=== PATIENT | female | born 1995 | race Caucasian/White ===

== ENCOUNTER 2017-07-29 19:25 | Observation (INO) | payer MEDICAID ==
[2017-07-29 20:00] VITALS: BP 131/72; PULSE 80
[2017-07-29 20:26] LABS: Amphetamine,Urine NEG. (NEGATIVE); Barbiturate,Urine NEG. (NEGATIVE); Benzodiazepine,Urine NEG. (NEGATIVE); Cocaine,Urine NEG. (NEGATIVE); Methadone,Urine NEG. (NEGATIVE); Opiate,Urine NEG. (NEGATIVE); PCP,Urine NEG. (NEGATIVE); THC,Urine NEG. (NEGATIVE)
[2017-07-29 21:15] LABS: Appearance CLEAR (CLEAR); Bilirubin NEGATIVE (NEGATIVE); Blood TRACE NON-HEM Ery/ul (0-5); Glucose NEGATIVE (NEGATIVE); Ketones NEGATIVE (NEGATIVE); Leukocyte Esterase 1+ (NEGATIVE); Nitrite NEGATIVE (NEGATIVE); Protein,Urine Dip NEGATIVE (Negative); Specific Gravity 1.015 (1.005-1.025); Urobilinogen NORMAL mg/dL (0-1)
[2017-07-29 21:16] LABS: Bacteria MODERATE /HPF (NEGATIVE); Epithelial Cells FEW /HPF (FEW)
== END 2017-07-29 21:37 | disposition home or self-care (01) ==
LOC: OB 19:25
PROVIDERS: ADMIT Family Medicine; ATTEND Family Medicine
DX: Z34.02 Encounter for supervision of normal first pregnancy, second trimester (principal)
CPT/HCPCS: 80307; 81000; G0378

== ENCOUNTER 2018-08-05 20:37 | Emergency (ER) | payer OTHER ==
[2018-08-05 20:56] VITALS: O2SAT 96
[2018-08-05] MEDS ORDERED: Rocephin 1000 MG INJ IM ONE (21:27)
[2018-08-05] MEDS ORDERED: BACTRIM DS TABLET PO STA (21:28)
[2018-08-05] MEDS ORDERED: NORCO 5/325 MG PO ONE ×2 (21:28→21:42)
[2018-08-05] MEDS ORDERED: BACTRIM DS TABLET PO ONE (21:32)
[2018-08-05] MEDS ORDERED: Rocephin 1000 MG INJ ONE (21:33)
[2018-08-05] MEDS ORDERED: NORCO 5/325 MG ONE ×2 (21:33→21:49)
[2018-08-05] MEDS ORDERED: XYLOCAINE 1% HCL 20 ML MDV ONE (21:33)
--- NOTE | 2018-08-05 21:37 | ERPHSYRPT ---
- History of Present Illness Time Seen by Provider: 08/05/18 21:05 Source: patient, family Patient Subjective Stated Complaint: Abscess Triage Nursing Assessment: Patient brought back to ED and transferred self to bed. Patient A+O X 3. Patient's skin pink, warm and dry. Patient complains of abscess to lower right side of abdomen that is draining brown foul smelling drainage. Patient complains of pain 9/10. Physician History: 22 y/o white female presents with a one day h/o right suprapubic abscess. spontaneously opened and draining here in ED. pain improved once abscess opened. mild odor present. pt does occasional have spontaneous abscesses on legs. no known exposure to anyone with MRSA. no fevers. Timing/Duration: day(s) (one) Quality: painful Severity: mild Location: other (right pannus/suprapubic) Associated Symptoms: swelling/mass/lumps, No change in skin texture, No difficulty breathing, No fever Allergies/Adverse Reactions: No Known Drug Allergies Allergy (Verified 08/05/18 20:45) Hx Influenza Vaccination/Date Given: No Hx Pneumococcal Vaccination/Date Given: No Immunizations Up to Date: Yes - Review of Systems Constitutional: No Symptoms Eyes: No Symptoms Ears, Nose, & Throat: No Symptoms Respiratory: No Symptoms Cardiac: No Symptoms Abdominal/Gastrointestinal: No Symptoms Genitourinary Symptoms: No Symptoms Musculoskeletal: No Symptoms Skin: Other (abscess right suprapubic area) Neurological: No Symptoms Psychological: No Symptoms Endocrine: No Symptoms Hematologic/Lymphatic: No Symptoms Immunological/Allergic: No Symptoms All Other Systems: Reviewed and Negative - Past Medical History Pertinent Past Medical History: Yes Neurological History: No Pertinent History ENT History: No Pertinent History Cardiac History: No Pertinent History Respiratory History: Asthma Endocrine Medical History: No Pertinent History Musculoskeletal History: No Pertinent History GI Medical History: No Pertinent History History: No Pertinent History Psycho-Social History: No Pertinent History Female Reproductive Disorders: Other Other Medical History: watermelon sized ovarian cyst removed at age 18 - Past Surgical History Past Surgical History: Yes Neuro Surgical History: No Pertinent History Cardiac: No Pertinent History Respiratory: No Pertinent History Gastrointestinal: No Pertinent History Genitourinary: No Pertinent History Musculoskeletal: Amputation, Other Female Surgical History: Other Other Surgical History: multiple sets of tubes placed and replaced in both ears, . 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 watermelon sized ovarian cyst removed at age 18 - Social History Smoking Status: Current every day smoker How long have you smoked: 4 years Exposure to second hand smoke: Yes Drug Use: none Patient Lives Alone: No - Female History Hx Last Menstrual Period: Middle of June Hx Now: No - Nursing Vital Signs Nursing Vital Signs: Initial Vital Signs Temperature 99.8 F 08/05/18 20:46 Pulse Rate 92 H 08/05/18 20:46 Respiratory Rate 18 08/05/18 20:46 Blood Pressure 117/82 08/05/18 20:46 O2 Sat by Pulse Oximetry 96 08/05/18 20:46 Pain Scale Pain Intensity 9 - Physical Exam General Appearance: no apparent distress, alert, anxiety Eye Exam: PERRL/EOMI, eyes nml inspection Ears, Nose, Throat Exam: normal ENT inspection, moist mucous membranes Neck Exam: normal inspection, non-tender, supple, full range of motion Respiratory Exam: normal breath sounds, lungs clear, airway intact, No chest tenderness, No respiratory distress, No accessory muscle use, No rhonchi, No wheezing, No stridor Cardiovascular Exam: regular rate/rhythm, normal heart sounds, normal peripheral pulses Gastrointestinal/Abdomen Exam: soft, normal bowel sounds, No tenderness, No guarding, No rebound Pelvic Exam: not done Rectal Exam: not done Back Exam: normal inspection, normal range of motion, No CVA tenderness, No vertebral tenderness Extremity Exam: normal inspection, normal range of motion, pelvis stable Neurologic Exam: alert, oriented x 3, cooperative, fiscal manager II-XII nml as tested Skin Exam: other (small abscess open and spontaneously draining. no odor. area expressed until all pus removed. culture taken.) Lymphatic Exam: No adenopathy SpO2 Interpretation: normal SpO2: 96 - Course Nursing assessment & vital signs reviewed: Yes Ordered Tests: Active Orders 24 hr Category Date Time Status CULTURE,WOUND Stat Lab 08/05/18 21:20 Ordered Medication Summary Generic Name Dose Route Start Last Admin Trade Name Freq PRN Reason Stop Dose Admin Hydrocodone Bitart/Acetaminophen 1 tab 08/05/18 21:28 Samaria 5/325 Mg PO 08/05/18 21:29 STAT ONE Ceftriaxone Sodium 1,000 mg 08/05/18 21:27 Rocephin 1000 Mg Inj IM 08/05/18 21:28 STAT ONE Trimethoprim/Sulfamethoxazole 1 tab 08/05/18 21:28 Bactrim Ds Tablet PO 08/05/18 21:29 STAT STA - Progress Progress: improved, re-examined Counseled pt/family regarding: diagnosis, need for follow-up - Departure Time of Disposition: 21:37 Departure Disposition: Home Clinical Impression: Abscess Condition: Stable Critical Care Time: No Referrals: SAHRA KAMARA [Primary Care Provider] - Additional Instructions: express area of open abscess two times daily. no ointments lotions or creams to area. return to ED if symptoms worsen. take medications as prescribed. do not breast feed while on this medication Prescriptions: Hydrocodone/APAP 5-325 Tab^^^ [Samaria 5-325 Tablet^^^] 1 tab PO Q6HPRN PRN #10 tablet MDD 6 PRN Reason: Pain Smz/Tmp Ds Tablet [Bactrim Ds Tablet] 1 udtab PO BID #14 tablet
[2018-08-05 21:48] VITALS: BP 146/88; PULSE 94
== END 2018-08-05 21:58 | disposition home or self-care (01) ==
LOC: ED 20:37
DX: L02.211 Cutaneous abscess of abdominal wall (principal); J45.909 Unspecified asthma, uncomplicated; Z72.0 Tobacco use
CPT/HCPCS: 87070; 96372; 99284; J0696; A9270-GY